=== PATIENT | male | born 1965 | race African-American/Black ===

== ENCOUNTER 2017-01-07 04:25 | Emergency (ER) | payer MEDICAID ==
[~2017-01-07] VITALS: Ht 188 cm; Wt 136.0 kg
[~2017-01-07 04:25] MED LIST: ALLO100T; AMLO5TAB4; GLIP5TAB3; IBUP100T53; LISI2.5T89; METF500T4
[2017-01-07 05:21] LABS: BASOPHILS % 0.2 % (0.0-2.0); EOSINOPHILS % 1.4 % (0.0-5.0); HEMATOCRIT. 37.8 % (42.0-52.0); HEMOGLOBIN. 12.3 g/dL (14.0-18.0); LYMPHOCYTES % 33.2 % (20.0-50.0); MEAN CORPUSCULAR HEMOGLOBIN 25.7 pg (28.0-32.0); MEAN PLATELET VOLUME 8.8 fl (7.4-10.4); MONOCYTES % 6.8 % (2.0-8.0); NEUTROPHILS % 58.4 % (40.0-76.0); PLATELET 207 x1000/uL (130-400); RED BLOOD CELL COUNT 4.78 mill/uL (4.7-6.1); RED CELL DISTRIBUTION WIDTH 16.7 % (11.6-14.6)
[2017-01-07 05:37] LABS: CARBON DIOXIDE 27 mEq/L (21-32); TROPONIN I < 0.02 ng/mL (0.00-0.04)
[2017-01-07] MEDS ORDERED: ALBUTEROL (0.083%) 2.5MG/3ML NEB HHN STA (05:40)
[2017-01-07 05:41] LABS: CHLORIDE 101 mEq/L (98-107)
[2017-01-07 06:11] VITALS: BP 155/86
== END 2017-01-07 06:20 | disposition home or self-care (01) ==
LOC: ER 04:25
DX: R06.02 Shortness of breath (principal); R05 Cough; R09.81 Nasal congestion; R07.9 Chest pain, unspecified; I10 Essential (primary) hypertension; E11.9 Type 2 diabetes mellitus without complications; M19.90 Unspecified osteoarthritis, unspecified site; F12.10 Cannabis abuse, uncomplicated
CPT/HCPCS: 36415; 71010; 80048; 83880; 84484; 85025; 93005; 94640; 99285; J7611; Z7610

== ENCOUNTER 2017-02-17 08:40 | Emergency (ER) | payer MEDICAID ==
[~2017-02-17] VITALS: Ht 188 cm; Wt 138.0 kg
[2017-02-17] MEDS ORDERED: KETOROLAC 30MG/ML VIAL IM ONE (11:30)
[2017-02-17 12:07] VITALS: BP 157/99
== END 2017-02-17 12:35 | disposition home or self-care (01) ==
LOC: ER 08:51
DX: M10.9 Gout, unspecified (principal); E11.9 Type 2 diabetes mellitus without complications; I10 Essential (primary) hypertension; F12.10 Cannabis abuse, uncomplicated; M19.90 Unspecified osteoarthritis, unspecified site
CPT/HCPCS: 96372; 99283; J1885

== ENCOUNTER 2018-09-02 00:11 | Emergency (ER) | payer MEDICAID ==
[~2018-09-02] VITALS: Ht 188 cm; Wt 141.0 kg
[~2018-09-02 00:11] MED LIST changes: +METF-414; -METF500T4
[2018-09-02] MEDS ORDERED: KETOROLAC 60MG/2ML VIAL IM ONE (01:15)
[2018-09-02] MEDS: DIAZEPAM 5 MG TABLET PO SCH ×3 (01:36→02:23)
[2018-09-02 03:14] VITALS: BP 150/82
== END 2018-09-02 03:19 | disposition home or self-care (01) ==
LOC: ER 00:11
DX: M62.838 Other muscle spasm (principal); R51 Headache; I11.0 Hypertensive heart disease with heart failure; I50.9 Heart failure, unspecified; E11.9 Type 2 diabetes mellitus without complications; F12.10 Cannabis abuse, uncomplicated; Z79.899 Other long term (current) drug therapy
CPT/HCPCS: 82962; 96372; 99283; J1885; Z7610